=== PATIENT | female | born 1965 | race Caucasian/White ===

== ENCOUNTER 2016-05-25 19:47 | Emergency (ER) | payer BC, OTHER ==
[2016-05-25] MEDS ORDERED: DIPHTH,PERTUSS(ACELL),TET VAC 0.5 ML VIAL IM ONE (19:55)
[2016-05-25 19:58] VITALS: BP 123/85; PULSE 89; TEMP 98.5; BMI 29.7
--- NOTE | 2016-05-25 20:18 | PDOC ---
History of Present Illness - General Chief Complaint: Injury Stated Complaint: INJURY Time Seen by Provider: 05/25/16 19:54 History Source: Patient - History of Present Illness Occurred: reports: this evening Pain Location: reports: face Method of Injury: Yes: fall Past History - Past Medical History Allergies/Adverse Reactions: Allergies Allergy/AdvReac Type Severity Reaction Status Date / Time No Known Allergies Allergy Verified 05/25/16 19:55 Home Medications: Ambulatory Orders Acetaminophen W/ Codeine #3 [Tylenol # 3 -] 1 tab PO HS PRN #10 tablet MDD 1 Benzonatate [Tessalon Pearls -] 100 mg PO TID #21 capsule 11/08/15 Omeprazole 10 mg PO ASDIR 11/08/15 Asthma: Yes () - Immunization History Td Vaccination: Yes Immunization Up to Date: Yes (2008) - Psycho/Social/Smoking Cessation Hx Anxiety: No Suicidal Ideation: No Smoking Status: No Smoking History: Never smoked Have you smoked in the past 12 months: No Number of Cigarettes Smoked Daily: 0 Cigars Per Day: 0 Hx Alcohol Use: No Drug/Substance Use Hx: No Substance Use Type: None Review of Systems - Review of Systems Integumentary: Yes: Other (facial wound) *Physical Exam - Vital Signs Last Vital Signs Temp Pulse Resp BP Pulse Ox 98.5 F 89 18 123/85 98 05/25/16 19:55 05/25/16 19:55 05/25/16 19:55 05/25/16 19:55 05/25/16 19:55 - Physical Exam General Appearance: Yes: Appropriately Dressed HEENT: positive: Normal Voice, Other (abrasion to mid upper lip, small superficial lac to oral mucosa of lower lip, dentition intact) Neck: positive: Supple. negative: Tender, Decreased range of motion Respiratory/Chest: negative: Respiratory Distress Integumentary: positive: Dry, Warm Neurologic: positive: Fully Oriented, Alert, Normal Mood/Affect Medical Decision Making - Medical Decision Making 05/25/16 20:40 51-year-old female here with facial injury after fall tonight. Patient states she tripped over dog and striked face against furniture. No LOC, headache or dizziness. Not on any blood thinners. Patient teary in ED with superficial wounds to upper and lower lip, no need for wound repair at this time and dentition intact. No evidence of additional injuries. Tetanus up-to-date. Local wound care and ED DC with [id number] pain meds as needed *DC/Admit/Observation/Transfer Diagnosis at time of Disposition: Lip abrasion Qualifiers: Encounter type: initial encounter Qualified Code(s): S00.511A - Abrasion of lip , initial encounter - Discharge Dispostion Disposition: HOME - Patient Instructions Printed Discharge Instructions: DI for Abrasion Additional Instructions: Take motrin as needed for pain
== END 2016-05-25 20:50 | disposition home or self-care (01) ==
LOC: JERFT 19:47
DX: S00.511A Abrasion of lip, initial encounter (principal); W01.0XXA Fall on same level from slipping, tripping and stumbling without subsequent striking against object, initial encounter; Y93.89 Activity, other specified; Y92.018 Other place in single-family (private) house as the place of occurrence of the external cause
CPT/HCPCS: 99281-25

== ENCOUNTER 2022-04-06 05:05 | Day surgery (SDC) | payer BC ==
[2022-03-31 12:46] VITALS: BMI 30.4
[2022-04-06 10:25] VITALS: TEMP 98
[2022-04-06 10:54] VITALS: RESP 17
[2022-04-06 10:57] VITALS: BP 123/73; PULSE 79
== END 2022-04-06 11:41 | disposition home or self-care (01) ==
LOC: JASU-ENDO 05:05
PROVIDERS: ATTEND Internal Medicine Gastroenterology
PROC: 0DB78ZX Excision of Stomach, Pylorus, Via Natural or Artificial Opening Endoscopic, Diagnostic (ICD-10-PCS; 2022-04-06)
PROC: 0DB68ZX Excision of Stomach, Via Natural or Artificial Opening Endoscopic, Diagnostic (ICD-10-PCS; 2022-04-06)
PROC: 0DB48ZX Excision of Esophagogastric Junction, Via Natural or Artificial Opening Endoscopic, Diagnostic (ICD-10-PCS; 2022-04-06)
PROC: 0DB98ZX Excision of Duodenum, Via Natural or Artificial Opening Endoscopic, Diagnostic (ICD-10-PCS; principal; 2022-04-06 09:30)
DX: K21.00 Gastro-esophageal reflux disease with esophagitis, without bleeding (principal); K44.9 Diaphragmatic hernia without obstruction or gangrene; K29.50 Unspecified chronic gastritis without bleeding
CPT/HCPCS: 88305-TC; 88342-TC

== ENCOUNTER 2022-04-27 04:32 | Day surgery (SDC) | payer BC ==
[2022-04-22 14:27] VITALS: BMI 30.4
[2022-04-27 09:56] VITALS: RESP 20; TEMP 98
[2022-04-27 10:16] VITALS: BP 105/77; PULSE 80
== END 2022-04-27 09:50 | disposition home or self-care (01) ==
LOC: JASU-ENDO 04:32
PROVIDERS: ATTEND Internal Medicine Gastroenterology
PROC: 0DBP8ZX Excision of Rectum, Via Natural or Artificial Opening Endoscopic, Diagnostic (ICD-10-PCS; 2022-04-27)
PROC: 0DBH8ZX Excision of Cecum, Via Natural or Artificial Opening Endoscopic, Diagnostic (ICD-10-PCS; principal; 2022-04-27 08:15)
DX: Z12.11 Encounter for screening for malignant neoplasm of colon (principal); D12.0 Benign neoplasm of cecum; D12.8 Benign neoplasm of rectum; K64.8 Other hemorrhoids; K57.30 Diverticulosis of large intestine without perforation or abscess without bleeding
CPT/HCPCS: 88305-TC